=== PATIENT | female | born 1970 ===

== ENCOUNTER 2024-07-01 01:16 | Inpatient (IN) | payer OTHER, SELFPAY ==
[2024-07-01 01:52] VITALS: BMI 32.9
[2024-07-01] MEDS: OLANZapine ODT 10 MG TAB.RAPDIS TRANSLINGU ×3 (02:09→20:29)
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
[2024-07-01 07:50] VITALS: BP 121/61; PULSE 53; RESP 14; TEMP 36.4
--- NOTE | 2024-07-01 09:20 | HO.PSYADMNOT ---
HPI Date of Service: 07/01/24 Chief Complaint: major depressive disorder, unspecified anxiety Sources of Information: patient interviewed, chart reviewed and crisis/core team assessment reviewed HPI Subjective Notes: [place] Warning and Conditional Voluntary Narrative: Patient is a 54-year-old female with MDD with psychotic features, PTSD who presented to ER on a section 12 due to walking in the snow and freezing rain and being found by police secondary to medication noncompliance. Per crisis report, patient was out all night in the snow/freezing rain and was returned home via police presenting increasingly disorganized, not attending to her ADLs and attempting to discard of all of her possessions.. Patient presented to ER on a section 12 issued by [employer] after she refused evaluation and was too disorganized. She presented labile, muttering to herself and weeping. She presented with pressured speech, perseverating on Gypsies. She denies SI/HI/VH/AH. Denies any daily medications. Denies any substance use. During admission assessment, patient lying in bed refused to meet with T/W in unit office. Declined to turn over in bed to look at T/W during assessment. Guarded. Irritable. Patient kept assessment brief. When asked what brought her to the hospital, patient stated, I was brought here by ambulance. I don't fucking know why I'm here . Patient reports she is not anxious or depressed. When asked about thoughts of hurting others, patient stated, Just you . Patient then abruptly stopped interview and stated, I want you to leave the fucking room . T/W and sr. social media & mobile manager, Duyen, proceeded to leave room and told pt to ask RN if she needed anything. Later in morning, patient was seen sitting at table in unit milieu. T/W and RN approached patient and discussed conditional voluntary, which patient stated she understood and signed in. Discussed medications on her home medications hx (Zyprexa and Paxil); patient took medications willingly. Showered. Keeping to self. Past Psychiatric History: History of prior inpatient psychiatric admissions. Patient has outpatient supports through a [facility]. History of suicide attempt in 2009 but did not disclose any details. Medical Evaluation Reviewed: Yes [facility] Medical History (Updated 07/01/24 @ 16:09 by Leonarda Paris NP) Mood disorder Family History: History of substance use within the family. Social History: Lives in a home via [employer]. . Two adult daughters. Substance History: When asked patient states she has a history of using all of them . Trauma History: Yes Diagnostics Vital Signs (24Hr): Vital Signs - 24 hr 07/01/24 07:50 Temperature 97.5 F Pulse Rate 53 Respiratory Rate 14 Blood Pressure 121/61 Oxygen Delivery Method Room Air BMI result Body Mass Index 32.9 Meds/Allergies Meds Home Medications ?Medication ?Instructions ?Recorded ?Confirmed ?Type lorazepam 0.5 mg tablet 0.5 mg PO DAILY PRN Anxiety 07/01/24 07/01/24 History olanzapine 10 mg tablet 10 mg PO BEDTIME 07/01/24 07/01/24 History olanzapine 2.5 mg tablet 2.5 mg PO BEDTIME 07/01/24 07/01/24 History paroxetine HCl 20 mg tablet 20 mg PO DAILY 07/01/24 07/01/24 History zolpidem 5 mg tablet 5 mg PO BEDTIME PRN Insomnia 07/01/24 07/01/24 History Allergies Allergies Allergy/AdvReac Type Severity Reaction Status Date / Time latex Allergy Unknown Unknown Verified 07/01/24 01:48 mold Allergy Unknown Unknown Verified 07/01/24 01:48 Mental Status Exam Mental Status Exam Patient Appearance: Disheveled Patient Orientation: Person, Place and Situation Level of Consciousness: Awake Patient Behavior: Guarded, Verbal Threats, Swearing and Poor Eye Contact Mood Description: Labile Affect Description: Blunted Ability to Follow Directions: Good Speech Pattern: Clear and Includes Profanity Assessment & Plan Assessment & Plan (1) MDD (major depressive disorder), recurrent, severe, with psychosis: Status: Acute Code(s): F33.3 - Major depressive disorder, recurrent, severe with psychotic symptoms (2) PTSD (post-traumatic stress disorder): Status: Acute Code(s): F43.10 - Post-traumatic stress disorder, unspecified Plan Patient is a 54-year-old female with MDD with psychotic features, PTSD who presented to ER on a section 12 due to walking in the snow and freezing rain and being found by police secondary to medication noncompliance. Plan: CV 15 minute safety checks Continue home medications Encourage groups Obtain collateral Build rapport Discharge planning Patient educated on: diagnosis and medication risk/benefits Reason for continued inpatient stay Substantial Risk for: med/psych decompensation Statement Statement: I have reviewed the history and physical and performed a pertinent examination on my patient. No changes have occurred unless specified. If the History and Physical was not performed prior to admission, the Hospitalist's service will be consulted for completing the admission physical. Time Spent With Patient Time: Total time managing care of this patient today _60___ minutes.
[2024-07-01] MEDS: PARoxetine HCL 10 MG TABLET PO (10:59)
--- NOTE | 2024-07-01 13:43 | HO.HSGERICON ---
History of Present Illness Data of Consult Service Date: 07/01/24 Primary Care Provider: Unknown Physician HPI Reason for consult: psych admit 54F PMH mood disorder with psychotic features admitted to inpatient psychiatry. Patient feeling tired after medications but denying any active medical complaints. Denies any significant medical history. Home medications are all for psychiatric conditions. Review of Systems Review of Systems: Yes all other systems are reviewed and are negative [facility] Medical History (Updated 07/01/24 @ 13:44 by Zac Joseph MD) Mood disorder Social History Household Members: Other Household Members Other:: [facility] Housing: Unknown / Unable to assess Patient Tobacco Use Status: Tobacco use Unknown Use of substances other than those prescribed or required for medical reasons: Unknown Advance Directives: No Advance Directives Information Provided: Yes Do you have a plan to hurt others: Vague Recently lost weight without trying: Unsure How much weight loss: Unsure Eating poorly because of decreased appetite: No Nutrition screen score: 4 Nutrition Risks: No Nutritional Risk Poor oral hygiene: Yes service: No Sexual orientation: Straight/Heterosexual Meds Allergies Allergy/AdvReac Type Severity Reaction Status Date / Time latex Allergy Unknown Unknown Verified 07/01/24 01:48 mold Allergy Unknown Unknown Verified 07/01/24 01:48 Active Medications: Current Medications Acetaminophen (Acetaminophen 325 Mg Tablet) 650 mg PO Q6H PRN PRN Reason: Headache/Pain, Scale 1-10 Al Hydroxide/Mg Hydroxide (Magnesium Hydrox/Alum Hydrox 30 Ml Oral.Susp) 30 ml PO Q6H PRN PRN Reason: Heartburn/Nausea Hydroxyzine HCl (Hydroxyzine Hcl 25 Mg Tablet) 25 mg PO Q6H PRN PRN Reason: mild anxiety Magnesium Hydroxide (Milk Of Magnesia 30 Ml Oral.Susp) 30 ml PO DAILY PRN PRN Reason: Constipation Nicotine Polacrilex (Nicotine Polacrilex 2 Mg Gum) 4 mg BUCCAL Q2H PRN PRN Reason: Nicotine Cravings Olanzapine (Olanzapine Odt 10 Mg Tab.Rapdis) 10 mg TRANSLINGU BID [facility] Last Admin: 07/01/24 10:59 Dose: 10 mg Paroxetine HCl (Paroxetine Hcl 10 Mg Tablet) 10 mg PO DAILY [facility] Last Admin: 07/01/24 10:59 Dose: 10 mg Trazodone HCl (Trazodone Hcl 50 Mg Tablet) 50 mg PO BEDTIME MRX1 PRN PRN Reason: Insomnia Home Medications ?Medication ?Instructions ?Recorded ?Confirmed ?Last Taken ?Type lorazepam 0.5 mg tablet 0.5 mg PO DAILY PRN Anxiety 07/01/24 07/01/24 Unknown History olanzapine 10 mg tablet 10 mg PO BEDTIME 07/01/24 07/01/24 Unknown History paroxetine HCl 20 mg tablet 20 mg PO DAILY 07/01/24 07/01/24 Unknown History zolpidem 5 mg tablet 5 mg PO BEDTIME PRN Insomnia 07/01/24 07/01/24 Unknown History Assessment and Plan (1) Mood disorder: Status: Acute Plan 54F PMH mood disorder with psychotic features admitted to inpatient psychiatry Mood disorder with psychotic features Management per primary team Does not appear to have any active medical issues Physical Exam Vital Signs: Last Vital Signs Temp 97.5 F 07/01/24 07:50 Pulse 53 07/01/24 07:50 Resp 14 07/01/24 07:50 BP 121/61 07/01/24 07:50 O2 Del Method Room Air 07/01/24 07:50 BMI result Body Mass Index 32.9 General: AO X 3, no acute distress Resp: CTA bilateral, no accessory muscles used CVS: S1,S2,RRR GI: soft, non tender, non distended Neuro: motor grossly intact, alert Neuro Cranial nerves: Yes CN's II-XII intact bilaterally
[2024-07-01 17:31] LABS: Amphetamine Screen Urine Not Detected (Not Detect); Barbiturates, Urine Not Detected (Not Detect); Benzodiazepines Screen Urine Not Detected (Not Detect); Buprenorphine Scr Not Detected (Not Detect); Cannabinoid Screen Urine POSITIVE (Not Detect); Cocaine Screen Urine Not Detected (Not Detect); Fentanyl, urine Not Detected (Not Detect); Methadone Screen, Urine Not Detected (Not Detect); Opiate Screen Urine Not Detected (Not Detect); Oxycodone Screen Urine Not Detected (Not Detect); Phencyclidine Screen Urine Not Detected (Not Detect)
[2024-07-01 19:59] VITALS: BP 105/60; PULSE 49; RESP 14; TEMP 36.8; O2SAT 96
[2024-07-01] MEDS: traZODone HCL 50 MG TABLET PO (20:29)
--- NOTE | 2024-07-02 08:50 | P.PNPSI_ITS ---
Subjective Subjective Date of Service: 07/02/24 Reason For Visit: major depressive disorder, unspecified anxiety Subjective Notes: Conditional Voluntary Healthcare Proxy: No Guardianship: No Medical Problems Affecting Mental Status: No Interim History: Patient was seen and discussed in rounds today. Records and plans were reviewed. She is very well known to me from previous hospitalizations, the last was a number of months ago at [facility] where she was quite catatonic and it took awhile for her to come around with ECT which was administered at [facility] in [place]. She was quite stable for a number of months after that until recently she started to be medication noncompliant, stating ?I wanted to clear my head up?. I do believe that her Paxil which has been restarted was at a high er dose which I can not remember exactly but I will raise her current dose to 20 mg. Generally she had tolerated it well. No SI. Eating adequately and has been mostly in bed. Not attending groups. Medication Compliance: Yes Side effects from medications: No Attending Groups: No Review of Systems Review of Systems Yes all other systems are reviewed and are negative Mental Status Exam Mental Status Exam Narrative: In today's visit she is alert, oriented to place and person and the month and the year. She was able to recognize me. Speech is soft-spoken. Moderate eye contact. She is able to respond to questions appropriately but unable to give much details and chronology of events. Cognitively she is grossly intact but disorganized. No active SI/HI. Judgment is marginal. Diagnostics Vital Signs (24Hr): Vital Signs - 24 hr 07/01/24 19:59 Temperature 98.2 F Pulse Rate 49 L Respiratory Rate 14 Blood Pressure 105/60 Pulse Oximetry 96 Oxygen Delivery Method Room Air BMI result Body Mass Index 32.9 Labs Labs: Laboratory Results - last 48 hr 07/01/24 17:05 Urine Opiates Screen Not Detected Ur Buprenorphine Scrn Not Detected Ur Oxycodone Screen Not Detected Urine Methadone Screen Not Detected Urine Fentanyl Screen Not Detected Ur Barbiturates Screen Not Detected Ur Phencyclidine Scrn Not Detected Ur Amphetamines Screen Not Detected U Benzodiazepines Scrn Not Detected Urine Cocaine Screen Not Detected U Marijuana (THC) Screen POSITIVE H Medications Medications Current Medications Acetaminophen (Acetaminophen 325 Mg Tablet) 650 mg PO Q6H PRN PRN Reason: Headache/Pain, Scale 1-10 Al Hydroxide/Mg Hydroxide (Magnesium Hydrox/Alum Hydrox 30 Ml Oral.Susp) 30 ml PO Q6H PRN PRN Reason: Heartburn/Nausea Benztropine Mesylate (Benztropine Mesylate 1 Mg Tablet) 1 mg PO DAILY PRN PRN Reason: Extrapyramidal Effects Hydroxyzine HCl (Hydroxyzine Hcl 25 Mg Tablet) 25 mg PO Q6H PRN PRN Reason: mild anxiety Magnesium Hydroxide (Milk Of Magnesia 30 Ml Oral.Susp) 30 ml PO DAILY PRN PRN Reason: Constipation Nicotine Polacrilex (Nicotine Polacrilex 2 Mg Gum) 4 mg BUCCAL Q2H PRN PRN Reason: Nicotine Cravings Olanzapine (Olanzapine Odt 10 Mg Tab.Rapdis) 10 mg TRANSLINGU BID [facility] Last Admin: 07/01/24 20:29 Dose: 10 mg Trazodone HCl (Trazodone Hcl 50 Mg Tablet) 50 mg PO BEDTIME MRX1 PRN PRN Reason: Insomnia Last Admin: 07/01/24 20:29 Dose: 50 mg Allergies Allergies Allergy/AdvReac Type Severity Reaction Status Date / Time latex Allergy Unknown Unknown Verified 07/01/24 01:48 mold Allergy Unknown Unknown Verified 07/01/24 01:48 Assessment & Plan Assessment & Plan (1) MDD (major depressive disorder), recurrent, severe, with psychosis: Status: Acute Code(s): F33.3 - Major depressive disorder, recurrent, severe with psychotic symptoms (2) PTSD (post-traumatic stress disorder): Status: Acute Code(s): F43.10 - Post-traumatic stress disorder, unspecified Plan Patient is a 54-year-old female with MDD with psychotic features, PTSD who presented to ER on a section 12 due to walking in the snow and freezing rain and being found by police secondary to medication noncompliance. Plan: CV 15 minute safety checks Continue home medications Encourage groups Obtain collateral Build rapport Discharge planning Reason for continued inpatient stay Substantial Risk for: harm to self and med/psych decompensation Time Spent With Patient Time: Total time managing care of this patient today ____ minutes.
[2024-07-02] MEDS: OLANZapine ODT 10 MG TAB.RAPDIS TRANSLINGU ×2 (09:14→20:10)
[2024-07-02] MEDS: PARoxetine HCL 20 MG TABLET PO (09:14)
[2024-07-02 11:43] LABS: Cholesterol 179 mg/dL (<200); HDL Cholesterol 42 mg/dL (>40); LDL Cholesterol Calculated 109 mg/dL (<100); Triglycerides 142 mg/dL (<150)
[2024-07-02 19:24] VITALS: BP 131/78; PULSE 56; RESP 16; TEMP 36.3; O2SAT 100
[2024-07-03 08:00] VITALS: BP 136/63; PULSE 62; RESP 16; TEMP 36.4; O2SAT 98
[2024-07-03] MEDS: PARoxetine HCL 20 MG TABLET PO (09:11)
[2024-07-03] MEDS: OLANZapine ODT 10 MG TAB.RAPDIS TRANSLINGU ×2 (09:11→21:53)
--- NOTE | 2024-07-03 10:10 | HO.PSYCHPN ---
Subjective Subjective Date of Service: 07/03/24 Reason For Visit: major depressive disorder, unspecified anxiety Subjective Notes: Conditional Voluntary Healthcare Proxy: No Guardianship: No Medical Problems Affecting Mental Status: No Interim History: Patient was seen and discussed in rounds today. Records and plans were reviewed. She is doing a little better but continues to be depressed. She does come out but spends a lot of time her room also. She refused her medications this morning and I had a long discussion with her given my history with her and how bad she gets when she stops her medications. She took them afterwards. No SI. No changes were made today Medication Compliance: Yes Side effects from medications: No Attending Groups: No Review of Systems Review of Systems Yes all other systems are reviewed and are negative Mental Status Exam Mental Status Exam Narrative: In today's visit she is alert, oriented to place and person and the month and the year. She was able to recognize me. Speech is soft-spoken. Moderate eye contact. She is able to respond to questions appropriately but unable to give much details and chronology of events. Cognitively she is grossly intact but disorganized. No active SI/HI. Judgment is marginal. Diagnostics Vital Signs (24Hr): Vital Signs - 24 hr 07/02/24 19:24 07/03/24 08:00 Temperature 97.3 F 97.5 F Pulse Rate 56 62 Respiratory Rate 16 16 Blood Pressure 131/78 136/63 Pulse Oximetry 100 98 Oxygen Delivery Method Room Air Room Air BMI result Body Mass Index 32.9 Labs Labs: Laboratory Results - last 48 hr 07/01/24 07/02/24 17:05 10:53 Triglycerides 142 Cholesterol 179 LDL Cholesterol, Calc 109 H HDL Cholesterol 42 Urine Opiates Screen Not Detected Ur Buprenorphine Scrn Not Detected Ur Oxycodone Screen Not Detected Urine Methadone Screen Not Detected Urine Fentanyl Screen Not Detected Ur Barbiturates Screen Not Detected Ur Phencyclidine Scrn Not Detected Ur Amphetamines Screen Not Detected U Benzodiazepines Scrn Not Detected Urine Cocaine Screen Not Detected U Marijuana (THC) Screen POSITIVE H Medications Medications Current Medications Acetaminophen (Acetaminophen 325 Mg Tablet) 650 mg PO Q6H PRN PRN Reason: Headache/Pain, Scale 1-10 Al Hydroxide/Mg Hydroxide (Magnesium Hydrox/Alum Hydrox 30 Ml Oral.Susp) 30 ml PO Q6H PRN PRN Reason: Heartburn/Nausea Benztropine Mesylate (Benztropine Mesylate 1 Mg Tablet) 1 mg PO DAILY PRN PRN Reason: Extrapyramidal Effects Hydroxyzine HCl (Hydroxyzine Hcl 25 Mg Tablet) 25 mg PO Q6H PRN PRN Reason: mild anxiety Magnesium Hydroxide (Milk Of Magnesia 30 Ml Oral.Susp) 30 ml PO DAILY PRN PRN Reason: Constipation Nicotine Polacrilex (Nicotine Polacrilex 2 Mg Gum) 4 mg BUCCAL Q2H PRN PRN Reason: Nicotine Cravings Olanzapine (Olanzapine Odt 10 Mg Tab.Rapdis) 10 mg TRANSLINGU BID [facility] Last Admin: 07/03/24 09:11 Dose: 10 mg Paroxetine HCl (Paroxetine Hcl 20 Mg Tablet) 20 mg PO DAILY [facility] Last Admin: 07/03/24 09:11 Dose: 20 mg Trazodone HCl (Trazodone Hcl 50 Mg Tablet) 50 mg PO BEDTIME MRX1 PRN PRN Reason: Insomnia Last Admin: 07/01/24 20:29 Dose: 50 mg Allergies Allergies Allergy/AdvReac Type Severity Reaction Status Date / Time latex Allergy Unknown Unknown Verified 07/01/24 01:48 mold Allergy Unknown Unknown Verified 07/01/24 01:48 Assessment & Plan Assessment & Plan (1) MDD (major depressive disorder), recurrent, severe, with psychosis: Status: Acute Code(s): F33.3 - Major depressive disorder, recurrent, severe with psychotic symptoms (2) PTSD (post-traumatic stress disorder): Status: Acute Code(s): F43.10 - Post-traumatic stress disorder, unspecified Plan Patient is a 54-year-old female with MDD with psychotic features, PTSD who presented to ER on a section 12 due to walking in the snow and freezing rain and being found by police secondary to medication noncompliance. Plan: CV 15 minute safety checks Continue home medications Encourage groups Obtain collateral Build rapport Discharge planning 07/03: Continue current regimen and plans. Patient educated on: medication risk/benefits Reason for continued inpatient stay Substantial Risk for: rapid decompensation and med/psych decompensation Time Spent With Patient Time: Total time managing care of this patient today ____ minutes.
[2024-07-03 19:44] VITALS: BP 127/70; PULSE 71; RESP 16; TEMP 36.4; O2SAT 99
[2024-07-04 08:00] VITALS: BP 134/73; PULSE 58; RESP 16; TEMP 36.8; O2SAT 99
[2024-07-04] MEDS: OLANZapine ODT 10 MG TAB.RAPDIS TRANSLINGU ×2 (09:20→20:15)
[2024-07-04] MEDS: PARoxetine HCL 20 MG TABLET PO (09:20)
--- NOTE | 2024-07-04 09:36 | HO.PSYCHPN ---
Subjective Subjective Date of Service: 07/04/24 Reason For Visit: major depressive disorder, unspecified anxiety Subjective Notes: Conditional Voluntary Healthcare Proxy: No Guardianship: No Medical Problems Affecting Mental Status: No Interim History: Patient was seen and discussed in rounds today. Records and plans were reviewed. She continues to attempt to refuse medications but when they mention that hi have okayed the medications and wants her to take them she will. I do have a long history with her and she trusts me. That can be used during the week also! Eating and sleeping adequately. No acute signs of psychosis. No active SI. No changes were made today Medication Compliance: Yes Side effects from medications: No Attending Groups: No Review of Systems Review of Systems Yes all other systems are reviewed and are negative Mental Status Exam Mental Status Exam Narrative: In today's visit she is alert, oriented to place and person and the month and the year. She was able to recognize me. Speech is soft-spoken. Moderate eye contact. She is able to respond to questions appropriately but unable to give much details and chronology of events. Cognitively she is grossly intact but disorganized. No active SI/HI. Judgment is marginal. Diagnostics Vital Signs (24Hr): Vital Signs - 24 hr 07/03/24 19:44 07/04/24 08:00 Temperature 97.6 F 98.2 F Pulse Rate 71 58 Respiratory Rate 16 16 Blood Pressure 127/70 134/73 Pulse Oximetry 99 99 Oxygen Delivery Method Room Air Room Air BMI result Body Mass Index 32.9 Labs Labs: Laboratory Results - last 48 hr 07/02/24 10:53 Triglycerides 142 Cholesterol 179 LDL Cholesterol, Calc 109 H HDL Cholesterol 42 Medications Medications Current Medications Acetaminophen (Acetaminophen 325 Mg Tablet) 650 mg PO Q6H PRN PRN Reason: Headache/Pain, Scale 1-10 Al Hydroxide/Mg Hydroxide (Magnesium Hydrox/Alum Hydrox 30 Ml Oral.Susp) 30 ml PO Q6H PRN PRN Reason: Heartburn/Nausea Benztropine Mesylate (Benztropine Mesylate 1 Mg Tablet) 1 mg PO DAILY PRN PRN Reason: Extrapyramidal Effects Hydroxyzine HCl (Hydroxyzine Hcl 25 Mg Tablet) 25 mg PO Q6H PRN PRN Reason: mild anxiety Magnesium Hydroxide (Milk Of Magnesia 30 Ml Oral.Susp) 30 ml PO DAILY PRN PRN Reason: Constipation Nicotine Polacrilex (Nicotine Polacrilex 2 Mg Gum) 4 mg BUCCAL Q2H PRN PRN Reason: Nicotine Cravings Olanzapine (Olanzapine Odt 10 Mg Tab.Rapdis) 10 mg TRANSLINGU BID [facility] Last Admin: 07/04/24 09:20 Dose: 10 mg Paroxetine HCl (Paroxetine Hcl 20 Mg Tablet) 20 mg PO DAILY [facility] Last Admin: 07/04/24 09:20 Dose: 20 mg Trazodone HCl (Trazodone Hcl 50 Mg Tablet) 50 mg PO BEDTIME MRX1 PRN PRN Reason: Insomnia Last Admin: 07/01/24 20:29 Dose: 50 mg Allergies Allergies Allergy/AdvReac Type Severity Reaction Status Date / Time latex Allergy Unknown Unknown Verified 07/01/24 01:48 mold Allergy Unknown Unknown Verified 07/01/24 01:48 Assessment & Plan Assessment & Plan (1) MDD (major depressive disorder), recurrent, severe, with psychosis: Status: Acute Code(s): F33.3 - Major depressive disorder, recurrent, severe with psychotic symptoms (2) PTSD (post-traumatic stress disorder): Status: Acute Code(s): F43.10 - Post-traumatic stress disorder, unspecified Plan Patient is a 54-year-old female with MDD with psychotic features, PTSD who presented to ER on a section 12 due to walking in the snow and freezing rain and being found by police secondary to medication noncompliance. Plan: CV 15 minute safety checks Continue home medications Encourage groups Obtain collateral Build rapport Discharge planning 07/03: Continue current regimen and plans. 07/04: Continue current regimen and plans Reason for continued inpatient stay Substantial Risk for: med/psych decompensation Time Spent With Patient Time: Total time managing care of this patient today ____ minutes.
[2024-07-04 20:00] VITALS: BP 134/86; PULSE 51; RESP 16; TEMP 36.8; O2SAT 98
[2024-07-05 08:00] VITALS: BP 141/73; PULSE 61; RESP 16; TEMP 36.3; O2SAT 99
[2024-07-05] MEDS: PARoxetine HCL 20 MG TABLET PO (08:18)
[2024-07-05] MEDS: OLANZapine ODT 10 MG TAB.RAPDIS TRANSLINGU ×2 (08:18→20:11)
--- NOTE | 2024-07-05 11:10 | HO.PSYCHPN ---
Subjective Subjective Date of Service: 07/05/24 Reason For Visit: major depressive disorder, unspecified anxiety Subjective Notes: Conditional Voluntary Interim History: Patient reports feeling calmer and more engaged today; pt stated, I'm willing to keep taking my meds. The voices went away over the weekend . Pt appears thought blocking/preoccupied at times during conversation. She expresses concern with trusting people . denies SI/HI/VH/AH. Continue current tx plan. Medication Compliance: Yes Side effects from medications: No Attending Groups: Yes Mental Status Exam Mental Status Exam Narrative: Pt is alert and oriented; behavior is cooperative, calm; dressed in casual attire; mood is described as calmer ; eye contact appropriate; Speech is normal rate, volume and not pressured; some thought blocking/preoccupation; Thought content is on tx; denies SI/HI/VH/AH. Diagnostics Vital Signs (24Hr): Vital Signs - 24 hr 07/04/24 20:00 07/05/24 08:00 Temperature 98.2 F 97.3 F Pulse Rate 51 61 Respiratory Rate 16 16 Blood Pressure 134/86 141/73 H Pulse Oximetry 98 99 Oxygen Delivery Method Room Air Room Air BMI result Body Mass Index 32.9 Medications Medications Current Medications Acetaminophen (Acetaminophen 325 Mg Tablet) 650 mg PO Q6H PRN PRN Reason: Headache/Pain, Scale 1-10 Al Hydroxide/Mg Hydroxide (Magnesium Hydrox/Alum Hydrox 30 Ml Oral.Susp) 30 ml PO Q6H PRN PRN Reason: Heartburn/Nausea Benztropine Mesylate (Benztropine Mesylate 1 Mg Tablet) 1 mg PO DAILY PRN PRN Reason: Extrapyramidal Effects Hydroxyzine HCl (Hydroxyzine Hcl 25 Mg Tablet) 25 mg PO Q6H PRN PRN Reason: mild anxiety Magnesium Hydroxide (Milk Of Magnesia 30 Ml Oral.Susp) 30 ml PO DAILY PRN PRN Reason: Constipation Nicotine Polacrilex (Nicotine Polacrilex 2 Mg Gum) 4 mg BUCCAL Q2H PRN PRN Reason: Nicotine Cravings Olanzapine (Olanzapine Odt 10 Mg Tab.Rapdis) 10 mg TRANSLINGU BID [facility] Last Admin: 07/05/24 08:18 Dose: 10 mg Paroxetine HCl (Paroxetine Hcl 20 Mg Tablet) 20 mg PO DAILY [facility] Last Admin: 07/05/24 08:18 Dose: 20 mg Trazodone HCl (Trazodone Hcl 50 Mg Tablet) 50 mg PO BEDTIME MRX1 PRN PRN Reason: Insomnia Last Admin: 07/01/24 20:29 Dose: 50 mg Allergies Allergies Allergy/AdvReac Type Severity Reaction Status Date / Time latex Allergy Unknown Unknown Verified 07/01/24 01:48 mold Allergy Unknown Unknown Verified 07/01/24 01:48 Assessment & Plan Assessment & Plan (1) MDD (major depressive disorder), recurrent, severe, with psychosis: Status: Acute Code(s): F33.3 - Major depressive disorder, recurrent, severe with psychotic symptoms (2) PTSD (post-traumatic stress disorder): Status: Acute Code(s): F43.10 - Post-traumatic stress disorder, unspecified Plan Patient is a 54-year-old female with MDD with psychotic features, PTSD who presented to ER on a section 12 due to walking in the snow and freezing rain and being found by police secondary to medication noncompliance. Plan: CV 15 minute safety checks Continue home medications Encourage groups Obtain collateral Build rapport Discharge planning 07/03: Continue current regimen and plans. 07/04: Continue current regimen and plans 07/05: Patient reports feeling calmer and more engaged today; pt stated, I'm willing to keep taking my meds. The voices went away over the weekend . Pt appears thought blocking/preoccupied at times during conversation. She expresses concern with trusting people . denies SI/HI/VH/AH. Continue current tx plan. Patient educated on: diagnosis, medication risk/benefits and therapeutic strategies Reason for continued inpatient stay Substantial Risk for: med/psych decompensation Time Spent With Patient Time: Total time managing care of this patient today _20___ minutes.
[2024-07-05 20:00] VITALS: BP 119/74; PULSE 63; RESP 16; TEMP 36.6; O2SAT 99
[2024-07-06 07:48] VITALS: BP 149/72; PULSE 65; RESP 16; TEMP 36.5; O2SAT 99
[2024-07-06] MEDS: PARoxetine HCL 20 MG TABLET PO (09:03)
[2024-07-06] MEDS: OLANZapine ODT 10 MG TAB.RAPDIS TRANSLINGU ×2 (09:03→20:40)
--- NOTE | 2024-07-06 09:14 | P.PNPSI_ITS ---
Subjective Subjective Date of Service: 07/06/24 Reason For Visit: major depressive disorder, unspecified anxiety Subjective Notes: Conditional Voluntary Interim History: Active on unit. attending groups. Patient reports feeling she is getting back to normal ; she reports sleeping well. Not appearing preoccupied today during conversation. denies SI/HI/VH/AH. Educated regarding importance of medication compliance; pt expressed understanding. Continue current tx plan. Medication Compliance: Yes Side effects from medications: No Attending Groups: Yes Mental Status Exam Mental Status Exam Narrative: Pt is alert and oriented; behavior is cooperative, calm; dressed in casual attire; mood is described as getting back to normal ; eye contact appropriate; Speech is normal rate, volume and not pressured; Thought content is on tx and discharge; denies SI/HI/VH/AH. Diagnostics Vital Signs (24Hr): Vital Signs - 24 hr 07/05/24 20:00 07/06/24 07:48 Temperature 97.9 F 97.7 F Pulse Rate 63 65 Respiratory Rate 16 16 Blood Pressure 119/74 149/72 H Pulse Oximetry 99 99 Oxygen Delivery Method Room Air Room Air BMI result Body Mass Index 32.9 Medications Medications Current Medications Acetaminophen (Acetaminophen 325 Mg Tablet) 650 mg PO Q6H PRN PRN Reason: Headache/Pain, Scale 1-10 Al Hydroxide/Mg Hydroxide (Magnesium Hydrox/Alum Hydrox 30 Ml Oral.Susp) 30 ml PO Q6H PRN PRN Reason: Heartburn/Nausea Benztropine Mesylate (Benztropine Mesylate 1 Mg Tablet) 1 mg PO DAILY PRN PRN Reason: Extrapyramidal Effects Hydroxyzine HCl (Hydroxyzine Hcl 25 Mg Tablet) 25 mg PO Q6H PRN PRN Reason: mild anxiety Magnesium Hydroxide (Milk Of Magnesia 30 Ml Oral.Susp) 30 ml PO DAILY PRN PRN Reason: Constipation Nicotine Polacrilex (Nicotine Polacrilex 2 Mg Gum) 4 mg BUCCAL Q2H PRN PRN Reason: Nicotine Cravings Olanzapine (Olanzapine Odt 10 Mg Tab.Rapdis) 10 mg TRANSLINGU BID [facility] Last Admin: 07/06/24 09:03 Dose: 10 mg Paroxetine HCl (Paroxetine Hcl 20 Mg Tablet) 20 mg PO DAILY [facility] Last Admin: 07/06/24 09:03 Dose: 20 mg Trazodone HCl (Trazodone Hcl 50 Mg Tablet) 50 mg PO BEDTIME MRX1 PRN PRN Reason: Insomnia Last Admin: 07/01/24 20:29 Dose: 50 mg Allergies Allergies Allergy/AdvReac Type Severity Reaction Status Date / Time latex Allergy Unknown Unknown Verified 07/01/24 01:48 mold Allergy Unknown Unknown Verified 07/01/24 01:48 Assessment & Plan Assessment & Plan (1) MDD (major depressive disorder), recurrent, severe, with psychosis: Status: Acute Code(s): F33.3 - Major depressive disorder, recurrent, severe with psychotic symptoms (2) PTSD (post-traumatic stress disorder): Status: Acute Code(s): F43.10 - Post-traumatic stress disorder, unspecified Plan Patient is a 54-year-old female with MDD with psychotic features, PTSD who presented to ER on a section 12 due to walking in the snow and freezing rain and being found by police secondary to medication noncompliance. Plan: CV 15 minute safety checks Continue home medications Encourage groups Obtain collateral Build rapport Discharge planning 07/03: Continue current regimen and plans. 07/04: Continue current regimen and plans 07/05: Patient reports feeling calmer and more engaged today; pt stated, I'm willing to keep taking my meds. The voices went away over the weekend . Pt appears thought blocking/preoccupied at times during conversation. She expresses concern with trusting people . denies SI/HI/VH/AH. Continue current tx plan. 07/06: Active on unit. attending groups. Patient reports feeling she is getting back to normal ; she reports sleeping well. Not appearing preoccupied today during conversation. denies SI/HI/VH/AH. Educated regarding importance of medication compliance; pt expressed understanding. Continue current tx plan. Patient educated on: diagnosis, medication risk/benefits and therapeutic strategies Reason for continued inpatient stay Substantial Risk for: med/psych decompensation Time Spent With Patient Time: Total time managing care of this patient today _20___ minutes.
[2024-07-06 20:00] VITALS: BP 139/65; PULSE 70; RESP 16; TEMP 36.4; O2SAT 99
[2024-07-06] MEDS: Magnesium Hydrox/Alum Hydrox 30 ML ORAL.SUSP PO (20:39)
[2024-07-07 07:00] VITALS: BMI 30.6
[2024-07-07 07:20] VITALS: BP 140/60; PULSE 63; RESP 16; TEMP 36.6; O2SAT 99
[2024-07-07] MEDS: OLANZapine ODT 10 MG TAB.RAPDIS TRANSLINGU ×2 (08:34→20:31)
[2024-07-07] MEDS: PARoxetine HCL 20 MG TABLET PO (08:34)
--- NOTE | 2024-07-07 10:16 | HO.PSYCHPN ---
Subjective Subjective Date of Service: 07/07/24 Reason For Visit: major depressive disorder, unspecified anxiety Subjective Notes: Conditional Voluntary Interim History: Active on unit. attending groups. Patient reports feeling good today; pt stated, I think i'm on the right meds. It's helpful . denies SI/HI/VH/AH. Plan to discharge home early next week, if continues to improve. continue current tx plan. Medication Compliance: Yes Side effects from medications: No Attending Groups: Yes Mental Status Exam Mental Status Exam Narrative: Pt is alert and oriented; behavior is cooperative, calm; dressed in casual attire; mood is described as good ; eye contact appropriate; Speech is normal rate, volume and not pressured; Thought content is on tx and discharge; denies SI/HI/VH/AH. Diagnostics Vital Signs (24Hr): Vital Signs - 24 hr 07/06/24 20:00 07/07/24 07:20 Temperature 97.6 F 97.8 F Pulse Rate 70 63 Respiratory Rate 16 16 Blood Pressure 139/65 140/60 H Pulse Oximetry 99 99 Oxygen Delivery Method Room Air Room Air BMI result Body Mass Index 32.9 Medications Medications Current Medications Acetaminophen (Acetaminophen 325 Mg Tablet) 650 mg PO Q6H PRN PRN Reason: Headache/Pain, Scale 1-10 Al Hydroxide/Mg Hydroxide (Magnesium Hydrox/Alum Hydrox 30 Ml Oral.Susp) 30 ml PO Q6H PRN PRN Reason: Heartburn/Nausea Last Admin: 07/06/24 20:39 Dose: 30 ml Benztropine Mesylate (Benztropine Mesylate 1 Mg Tablet) 1 mg PO DAILY PRN PRN Reason: Extrapyramidal Effects Hydroxyzine HCl (Hydroxyzine Hcl 25 Mg Tablet) 25 mg PO Q6H PRN PRN Reason: mild anxiety Magnesium Hydroxide (Milk Of Magnesia 30 Ml Oral.Susp) 30 ml PO DAILY PRN PRN Reason: Constipation Nicotine Polacrilex (Nicotine Polacrilex 2 Mg Gum) 4 mg BUCCAL Q2H PRN PRN Reason: Nicotine Cravings Olanzapine (Olanzapine Odt 10 Mg Tab.Rapdis) 10 mg TRANSLINGU BID [facility] Last Admin: 07/07/24 08:34 Dose: 10 mg Paroxetine HCl (Paroxetine Hcl 20 Mg Tablet) 20 mg PO DAILY [facility] Last Admin: 07/07/24 08:34 Dose: 20 mg Trazodone HCl (Trazodone Hcl 50 Mg Tablet) 50 mg PO BEDTIME MRX1 PRN PRN Reason: Insomnia Last Admin: 07/01/24 20:29 Dose: 50 mg Allergies Allergies Allergy/AdvReac Type Severity Reaction Status Date / Time latex Allergy Unknown Unknown Verified 07/01/24 01:48 mold Allergy Unknown Unknown Verified 07/01/24 01:48 Assessment & Plan Assessment & Plan (1) MDD (major depressive disorder), recurrent, severe, with psychosis: Status: Acute Code(s): F33.3 - Major depressive disorder, recurrent, severe with psychotic symptoms (2) PTSD (post-traumatic stress disorder): Status: Acute Code(s): F43.10 - Post-traumatic stress disorder, unspecified Plan Patient is a 54-year-old female with MDD with psychotic features, PTSD who presented to ER on a section 12 due to walking in the snow and freezing rain and being found by police secondary to medication noncompliance. Plan: CV 15 minute safety checks Continue home medications Encourage groups Obtain collateral Build rapport Discharge planning 07/03: Continue current regimen and plans. 07/04: Continue current regimen and plans 07/05: Patient reports feeling calmer and more engaged today; pt stated, I'm willing to keep taking my meds. The voices went away over the weekend . Pt appears thought blocking/preoccupied at times during conversation. She expresses concern with trusting people . denies SI/HI/VH/AH. Continue current tx plan. 07/06: Active on unit. attending groups. Patient reports feeling she is getting back to normal ; she reports sleeping well. Not appearing preoccupied today during conversation. denies SI/HI/VH/AH. Educated regarding importance of medication compliance; pt expressed understanding. Continue current tx plan. 07/07: Active on unit. attending groups. Patient reports feeling good today; pt stated, I think i'm on the right meds. It's helpful . denies SI/HI/VH/AH. Plan to discharge home early next week, if continues to improve. continue current tx plan. Patient educated on: diagnosis and medication risk/benefits Reason for continued inpatient stay Substantial Risk for: med/psych decompensation Time Spent With Patient Time: Total time managing care of this patient today _20___ minutes.
[2024-07-07] MEDS: Magnesium Hydrox/Alum Hydrox 30 ML ORAL.SUSP PO (15:27)
[2024-07-07 20:00] VITALS: BP 143/91; PULSE 90; RESP 16; TEMP 36.9; O2SAT 95
[2024-07-08 07:45] VITALS: BP 138/76; PULSE 67; RESP 14; TEMP 36.9; O2SAT 100
[2024-07-08] MEDS: PARoxetine HCL 20 MG TABLET PO (08:59)
[2024-07-08] MEDS: OLANZapine ODT 10 MG TAB.RAPDIS TRANSLINGU ×2 (08:59→21:29)
--- NOTE | 2024-07-08 11:55 | P.PNPSI_ITS ---
Subjective Subjective Date of Service: 07/08/24 Reason For Visit: major depressive disorder, unspecified anxiety Subjective Notes: Conditional Voluntary Interim History: Active on unit. attending groups. Patient continues to report feeling good ; plan to be discharged next week and her outpatient team to pick her up from hospital. denies SI/HI/VH/AH. She reports sleeping well. denies any issues at this time. Medication Compliance: Yes Side effects from medications: No Attending Groups: Yes Mental Status Exam Mental Status Exam Narrative: Pt is alert and oriented; behavior is cooperative, calm; dressed in casual attire; mood is described as good ; eye contact appropriate; Speech is normal rate, volume and not pressured; Thought content is on tx and discharge; denies SI/HI/VH/AH. Diagnostics Vital Signs (24Hr): Vital Signs - 24 hr 07/07/24 20:00 07/08/24 07:45 Temperature 98.4 F 98.4 F Pulse Rate 90 67 Respiratory Rate 16 14 Blood Pressure 143/91 H 138/76 Pulse Oximetry 95 100 Oxygen Delivery Method Room Air Room Air BMI result Body Mass Index 30.6 Medications Medications Current Medications Acetaminophen (Acetaminophen 325 Mg Tablet) 650 mg PO Q6H PRN PRN Reason: Headache/Pain, Scale 1-10 Al Hydroxide/Mg Hydroxide (Magnesium Hydrox/Alum Hydrox 30 Ml Oral.Susp) 30 ml PO Q6H PRN PRN Reason: Heartburn/Nausea Last Admin: 07/07/24 15:27 Dose: 30 ml Benztropine Mesylate (Benztropine Mesylate 1 Mg Tablet) 1 mg PO DAILY PRN PRN Reason: Extrapyramidal Effects Hydroxyzine HCl (Hydroxyzine Hcl 25 Mg Tablet) 25 mg PO Q6H PRN PRN Reason: mild anxiety Magnesium Hydroxide (Milk Of Magnesia 30 Ml Oral.Susp) 30 ml PO DAILY PRN PRN Reason: Constipation Nicotine Polacrilex (Nicotine Polacrilex 2 Mg Gum) 4 mg BUCCAL Q2H PRN PRN Reason: Nicotine Cravings Olanzapine (Olanzapine Odt 10 Mg Tab.Rapdis) 10 mg TRANSLINGU BID [facility] Last Admin: 07/08/24 08:59 Dose: 10 mg Paroxetine HCl (Paroxetine Hcl 20 Mg Tablet) 20 mg PO DAILY [facility] Last Admin: 07/08/24 08:59 Dose: 20 mg Trazodone HCl (Trazodone Hcl 50 Mg Tablet) 50 mg PO BEDTIME MRX1 PRN PRN Reason: Insomnia Last Admin: 07/01/24 20:29 Dose: 50 mg Allergies Allergies Allergy/AdvReac Type Severity Reaction Status Date / Time latex Allergy Unknown Unknown Verified 07/01/24 01:48 mold Allergy Unknown Unknown Verified 07/01/24 01:48 Assessment & Plan Assessment & Plan (1) MDD (major depressive disorder), recurrent, severe, with psychosis: Status: Acute Code(s): F33.3 - Major depressive disorder, recurrent, severe with psychotic symptoms (2) PTSD (post-traumatic stress disorder): Status: Acute Code(s): F43.10 - Post-traumatic stress disorder, unspecified Plan Patient is a 54-year-old female with MDD with psychotic features, PTSD who presented to ER on a section 12 due to walking in the snow and freezing rain and being found by police secondary to medication noncompliance. Plan: CV 15 minute safety checks Continue home medications Encourage groups Obtain collateral Build rapport Discharge planning 07/03: Continue current regimen and plans. 07/04: Continue current regimen and plans 07/05: Patient reports feeling calmer and more engaged today; pt stated, I'm willing to keep taking my meds. The voices went away over the weekend . Pt appears thought blocking/preoccupied at times during conversation. She expresses concern with trusting people . denies SI/HI/VH/AH. Continue current tx plan. 07/06: Active on unit. attending groups. Patient reports feeling she is getting back to normal ; she reports sleeping well. Not appearing preoccupied today during conversation. denies SI/HI/VH/AH. Educated regarding importance of medication compliance; pt expressed understanding. Continue current tx plan. 07/07: Active on unit. attending groups. Patient reports feeling good today; pt stated, I think i'm on the right meds. It's helpful . denies SI/HI/VH/AH. Plan to discharge home early next week, if continues to improve. continue current tx plan. 07/08: Patient continues to report feeling good ; plan to be discharged next week and her outpatient team to pick her up from hospital. denies SI/HI/VH/AH. She reports sleeping well. denies any issues at this time. attending groups. Patient educated on: diagnosis, medication risk/benefits and therapeutic strategies Reason for continued inpatient stay Substantial Risk for: med/psych decompensation Time Spent With Patient Time: Total time managing care of this patient today __20__ minutes.
[2024-07-08 20:00] VITALS: BP 137/81; PULSE 68; RESP 16; TEMP 36.9; O2SAT 98
[2024-07-09 07:10] VITALS: BP 121/72; PULSE 65; RESP 16; TEMP 36.4; O2SAT 99
[2024-07-09] MEDS: PARoxetine HCL 20 MG TABLET PO (08:48)
[2024-07-09] MEDS: OLANZapine ODT 10 MG TAB.RAPDIS TRANSLINGU ×2 (08:48→20:28)
--- NOTE | 2024-07-09 10:39 | P.PNPSI_ITS ---
Subjective Subjective Date of Service: 07/09/24 Reason For Visit: major depressive disorder, unspecified anxiety Interim History: Active on unit. attending groups. Patient continues to report feeling good ; plan to be discharged next week and her outpatient team to pick her up from hospital. denies SI/HI/VH/AH. She reports sleeping well. denies any issues at this time. Review of Systems Review of Systems Yes all other systems are reviewed and are negative Mental Status Exam Mental Status Exam Narrative: Pt is alert and oriented; behavior is cooperative, calm; dressed in casual attire; mood is described as good ; eye contact appropriate; Speech is normal rate, volume and not pressured; Thought content is on tx and discharge; denies SI/HI/VH/AH. Patient Appearance: Disheveled Patient Orientation: Person, Place and Situation Level of Consciousness: Awake Patient Behavior: Guarded, Verbal Threats, Swearing and Poor Eye Contact Mood Description: Labile Affect Description: Blunted Ability to Follow Directions: Good Speech Pattern: Clear and Includes Profanity Diagnostics Vital Signs (24Hr): Vital Signs - 24 hr 07/08/24 20:00 07/09/24 07:10 Temperature 98.4 F 97.6 F Pulse Rate 68 65 Respiratory Rate 16 16 Blood Pressure 137/81 121/72 Pulse Oximetry 98 99 Oxygen Delivery Method Room Air Room Air BMI result Body Mass Index 30.6 Medications Medications Current Medications Acetaminophen (Acetaminophen 325 Mg Tablet) 650 mg PO Q6H PRN PRN Reason: Headache/Pain, Scale 1-10 Al Hydroxide/Mg Hydroxide (Magnesium Hydrox/Alum Hydrox 30 Ml Oral.Susp) 30 ml PO Q6H PRN PRN Reason: Heartburn/Nausea Last Admin: 07/07/24 15:27 Dose: 30 ml Benztropine Mesylate (Benztropine Mesylate 1 Mg Tablet) 1 mg PO DAILY PRN PRN Reason: Extrapyramidal Effects Calcium Carbonate (Calcium Carbonate 750 Mg Tab.Chew) 750 mg PO Q6H PRN PRN Reason: Heartburn Hydroxyzine HCl (Hydroxyzine Hcl 25 Mg Tablet) 25 mg PO Q6H PRN PRN Reason: mild anxiety Magnesium Hydroxide (Milk Of Magnesia 30 Ml Oral.Susp) 30 ml PO DAILY PRN PRN Reason: Constipation Nicotine Polacrilex (Nicotine Polacrilex 2 Mg Gum) 4 mg BUCCAL Q2H PRN PRN Reason: Nicotine Cravings Olanzapine (Olanzapine Odt 10 Mg Tab.Rapdis) 10 mg TRANSLINGU BID [facility] Last Admin: 07/09/24 08:48 Dose: 10 mg Paroxetine HCl (Paroxetine Hcl 20 Mg Tablet) 20 mg PO DAILY [facility] Last Admin: 07/09/24 08:48 Dose: 20 mg Trazodone HCl (Trazodone Hcl 50 Mg Tablet) 50 mg PO BEDTIME MRX1 PRN PRN Reason: Insomnia Last Admin: 07/01/24 20:29 Dose: 50 mg Allergies Allergies Allergy/AdvReac Type Severity Reaction Status Date / Time latex Allergy Unknown Unknown Verified 07/01/24 01:48 mold Allergy Unknown Unknown Verified 07/01/24 01:48 Assessment & Plan Assessment & Plan (1) MDD (major depressive disorder), recurrent, severe, with psychosis: Status: Acute Code(s): F33.3 - Major depressive disorder, recurrent, severe with psychotic symptoms (2) PTSD (post-traumatic stress disorder): Status: Acute Code(s): F43.10 - Post-traumatic stress disorder, unspecified Plan Patient is a 54-year-old female with MDD with psychotic features, PTSD who presented to ER on a section 12 due to walking in the snow and freezing rain and being found by police secondary to medication noncompliance. Plan: CV 15 minute safety checks Continue home medications Encourage groups Obtain collateral Build rapport Discharge planning 07/03: Continue current regimen and plans. 07/04: Continue current regimen and plans 07/05: Patient reports feeling calmer and more engaged today; pt stated, I'm willing to keep taking my meds. The voices went away over the weekend . Pt appears thought blocking/preoccupied at times during conversation. She expresses concern with trusting people . denies SI/HI/VH/AH. Continue current tx plan. 07/06: Active on unit. attending groups. Patient reports feeling she is getting back to normal ; she reports sleeping well. Not appearing preoccupied today during conversation. denies SI/HI/VH/AH. Educated regarding importance of medication compliance; pt expressed understanding. Continue current tx plan. 07/07: Active on unit. attending groups. Patient reports feeling good today; pt stated, I think i'm on the right meds. It's helpful . denies SI/HI/VH/AH. Plan to discharge home early next week, if continues to improve. continue current tx plan. 07/08: Patient continues to report feeling good ; plan to be discharged next week and her outpatient team to pick her up from hospital. denies SI/HI/VH/AH. She reports sleeping well. denies any issues at this time. attending groups. 07/09: Continue current management and treatment plan. Reason for continued inpatient stay Substantial Risk for: harm to self, inability to function and rapid decompensation Time Spent With Patient Time: Total time managing care of this patient today ____ minutes.
[2024-07-09] MEDS: Magnesium Hydrox/Alum Hydrox 30 ML ORAL.SUSP PO (16:04)
[2024-07-09 20:00] VITALS: BP 121/75; PULSE 108; RESP 16; TEMP 36.6; O2SAT 97
[2024-07-09] MEDS: Calcium Carbonate 750 MG TAB.CHEW PO (20:39)
[2024-07-10 07:10] VITALS: BP 138/78; PULSE 56; RESP 12; TEMP 36.4; O2SAT 100
[2024-07-10] MEDS: OLANZapine ODT 10 MG TAB.RAPDIS TRANSLINGU ×2 (08:49→20:31)
[2024-07-10] MEDS: PARoxetine HCL 20 MG TABLET PO (08:50)
[2024-07-10] MEDS: Calcium Carbonate 750 MG TAB.CHEW PO (09:08)
--- NOTE | 2024-07-10 11:10 | P.PNPSI_ITS ---
Subjective Subjective Date of Service: 07/10/24 Reason For Visit: major depressive disorder, unspecified anxiety Interim History: Active on unit. attending groups. She has a heating pad that she is holding to her right shoulder. She reports she has a history of chronic shoulder pain and s he uses a heating pad for that. No acute injuries. She declines lidocaine patch. Patient continues to report feeling good in terms of her mood; plan to be discharged next week and her outpatient team to pick her up from hospital. denies SI/HI/VH/AH. She reports sleeping well. denies any issues at this time. Review of Systems Review of Systems Yes all other systems are reviewed and are negative Mental Status Exam Mental Status Exam Narrative: Pt is alert and oriented; behavior is cooperative, calm; dressed in casual attire; mood is described as good ; eye contact appropriate; Speech is normal rate, volume and not pressured; Thought content is on tx and discharge; denies SI/HI/VH/AH. Patient Appearance: Disheveled Patient Orientation: Person, Place and Situation Level of Consciousness: Awake Patient Behavior: Guarded, Verbal Threats, Swearing and Poor Eye Contact Mood Description: Labile Affect Description: Blunted Ability to Follow Directions: Good Speech Pattern: Clear and Includes Profanity Diagnostics Vital Signs (24Hr): Vital Signs - 24 hr 07/09/24 20:00 07/10/24 07:10 Temperature 98 F 97.6 F Pulse Rate 108 H 56 Respiratory Rate 16 12 Blood Pressure 121/75 138/78 Pulse Oximetry 97 100 Oxygen Delivery Method Room Air Room Air BMI result Body Mass Index 30.6 Medications Medications Current Medications Acetaminophen (Acetaminophen 325 Mg Tablet) 650 mg PO Q6H PRN PRN Reason: Headache/Pain, Scale 1-10 Al Hydroxide/Mg Hydroxide (Magnesium Hydrox/Alum Hydrox 30 Ml Oral.Susp) 30 ml PO Q6H PRN PRN Reason: Heartburn/Nausea Last Admin: 07/09/24 16:04 Dose: 30 ml Benztropine Mesylate (Benztropine Mesylate 1 Mg Tablet) 1 mg PO DAILY PRN PRN Reason: Extrapyramidal Effects Calcium Carbonate (Calcium Carbonate 750 Mg Tab.Chew) 750 mg PO Q6H PRN PRN Reason: Heartburn Last Admin: 07/10/24 09:08 Dose: 750 mg Hydroxyzine HCl (Hydroxyzine Hcl 25 Mg Tablet) 25 mg PO Q6H PRN PRN Reason: mild anxiety Magnesium Hydroxide (Milk Of Magnesia 30 Ml Oral.Susp) 30 ml PO DAILY PRN PRN Reason: Constipation Nicotine Polacrilex (Nicotine Polacrilex 2 Mg Gum) 4 mg BUCCAL Q2H PRN PRN Reason: Nicotine Cravings Olanzapine (Olanzapine Odt 10 Mg Tab.Rapdis) 10 mg TRANSLINGU BID [facility] Last Admin: 07/10/24 08:49 Dose: 10 mg Paroxetine HCl (Paroxetine Hcl 20 Mg Tablet) 20 mg PO DAILY [facility] Last Admin: 07/10/24 08:50 Dose: 20 mg Trazodone HCl (Trazodone Hcl 50 Mg Tablet) 50 mg PO BEDTIME MRX1 PRN PRN Reason: Insomnia Last Admin: 07/01/24 20:29 Dose: 50 mg Allergies Allergies Allergy/AdvReac Type Severity Reaction Status Date / Time latex Allergy Unknown Unknown Verified 07/01/24 01:48 mold Allergy Unknown Unknown Verified 07/01/24 01:48 Assessment & Plan Assessment & Plan (1) MDD (major depressive disorder), recurrent, severe, with psychosis: Status: Acute Code(s): F33.3 - Major depressive disorder, recurrent, severe with psychotic symptoms (2) PTSD (post-traumatic stress disorder): Status: Acute Code(s): F43.10 - Post-traumatic stress disorder, unspecified Plan Patient is a 54-year-old female with MDD with psychotic features, PTSD who presented to ER on a section 12 due to walking in the snow and freezing rain and being found by police secondary to medication noncompliance. Plan: CV 15 minute safety checks Continue home medications Encourage groups Obtain collateral Build rapport Discharge planning 07/03: Continue current regimen and plans. 07/04: Continue current regimen and plans 07/05: Patient reports feeling calmer and more engaged today; pt stated, I'm willing to keep taking my meds. The voices went away over the weekend . Pt appears thought blocking/preoccupied at times during conversation. She expresses concern with trusting people . denies SI/HI/VH/AH. Continue current tx plan. 07/06: Active on unit. attending groups. Patient reports feeling she is getting back to normal ; she reports sleeping well. Not appearing preoccupied today during conversation. denies SI/HI/VH/AH. Educated regarding importance of medication compliance; pt expressed understanding. Continue current tx plan. 07/07: Active on unit. attending groups. Patient reports feeling good today; pt stated, I think i'm on the right meds. It's helpful . denies SI/HI/VH/AH. Plan to discharge home early next week, if continues to improve. continue current tx plan. 07/08: Patient continues to report feeling good ; plan to be discharged next week and her outpatient team to pick her up from hospital. denies SI/HI/VH/AH. She reports sleeping well. denies any issues at this time. attending groups. 07/09: Continue current management and treatment plan. 07/10: Continue current management and treatment plan. Reason for continued inpatient stay Substantial Risk for: inability to function and rapid decompensation Time Spent With Patient Time: Total time managing care of this patient today ____ minutes.
[2024-07-10] MEDS: bisacodyL 5 MG TABLET.DR 10 MG PO (11:40)
[2024-07-10 20:00] VITALS: BP 154/80; PULSE 87; RESP 16; TEMP 36.9; O2SAT 96
[2024-07-11 07:50] VITALS: BP 145/73; PULSE 59; RESP 14; TEMP 36.3; O2SAT 100
[2024-07-11] MEDS: PARoxetine HCL 20 MG TABLET PO (09:10)
[2024-07-11] MEDS: OLANZapine ODT 10 MG TAB.RAPDIS TRANSLINGU ×2 (09:10→20:43)
--- NOTE | 2024-07-11 09:27 | P.PNPSI_ITS ---
Subjective Subjective Date of Service: 07/11/24 Reason For Visit: major depressive disorder, unspecified anxiety Subjective Notes: Conditional Voluntary Interim History: Active on unit, social with peers. attending groups. Pt reports she continues to feel good and is looking forward to seeing my family and friends . denies SI/HI/VH/AH. Plan to discharge home on Thursday. Medication Compliance: Yes Side effects from medications: No Attending Groups: Yes Mental Status Exam Mental Status Exam Narrative: Pt is alert and oriented; behavior is cooperative, calm; dressed in casual attire; mood is described as good ; eye contact appropriate; Speech is normal rate, volume and not pressured; Thought content is on tx and discharge; denies SI/HI/VH/AH. Diagnostics Vital Signs (24Hr): Vital Signs - 24 hr 07/10/24 20:00 07/11/24 07:50 Temperature 98.5 F 97.4 F Pulse Rate 87 59 Respiratory Rate 16 14 Blood Pressure 154/80 H 145/73 H Pulse Oximetry 96 100 Oxygen Delivery Method Room Air Room Air BMI result Body Mass Index 30.6 Medications Medications Current Medications Acetaminophen (Acetaminophen 325 Mg Tablet) 650 mg PO Q6H PRN PRN Reason: Headache/Pain, Scale 1-10 Al Hydroxide/Mg Hydroxide (Magnesium Hydrox/Alum Hydrox 30 Ml Oral.Susp) 30 ml PO Q6H PRN PRN Reason: Heartburn/Nausea Last Admin: 07/09/24 16:04 Dose: 30 ml Benztropine Mesylate (Benztropine Mesylate 1 Mg Tablet) 1 mg PO DAILY PRN PRN Reason: Extrapyramidal Effects Calcium Carbonate (Calcium Carbonate 750 Mg Tab.Chew) 750 mg PO Q6H PRN PRN Reason: Heartburn Last Admin: 07/10/24 09:08 Dose: 750 mg Hydroxyzine HCl (Hydroxyzine Hcl 25 Mg Tablet) 25 mg PO Q6H PRN PRN Reason: mild anxiety Magnesium Hydroxide (Milk Of Magnesia 30 Ml Oral.Susp) 30 ml PO DAILY PRN PRN Reason: Constipation Nicotine Polacrilex (Nicotine Polacrilex 2 Mg Gum) 4 mg BUCCAL Q2H PRN PRN Reason: Nicotine Cravings Olanzapine (Olanzapine Odt 10 Mg Tab.Rapdis) 10 mg TRANSLINGU BID [facility] Last Admin: 07/11/24 09:10 Dose: 10 mg Paroxetine HCl (Paroxetine Hcl 20 Mg Tablet) 20 mg PO DAILY [facility] Last Admin: 07/11/24 09:10 Dose: 20 mg Trazodone HCl (Trazodone Hcl 50 Mg Tablet) 50 mg PO BEDTIME MRX1 PRN PRN Reason: Insomnia Last Admin: 07/01/24 20:29 Dose: 50 mg Allergies Allergies Allergy/AdvReac Type Severity Reaction Status Date / Time latex Allergy Unknown Unknown Verified 07/01/24 01:48 mold Allergy Unknown Unknown Verified 07/01/24 01:48 Assessment & Plan Assessment & Plan (1) MDD (major depressive disorder), recurrent, severe, with psychosis: Status: Acute Code(s): F33.3 - Major depressive disorder, recurrent, severe with psychotic symptoms (2) PTSD (post-traumatic stress disorder): Status: Acute Code(s): F43.10 - Post-traumatic stress disorder, unspecified Plan Patient is a 54-year-old female with MDD with psychotic features, PTSD who presented to ER on a section 12 due to walking in the snow and freezing rain and being found by police secondary to medication noncompliance. Plan: CV 15 minute safety checks Continue home medications Encourage groups Obtain collateral Build rapport Discharge planning 07/03: Continue current regimen and plans. 07/04: Continue current regimen and plans 07/05: Patient reports feeling calmer and more engaged today; pt stated, I'm willing to keep taking my meds. The voices went away over the weekend . Pt appears thought blocking/preoccupied at times during conversation. She expresses concern with trusting people . denies SI/HI/VH/AH. Continue current tx plan. 07/06: Active on unit. attending groups. Patient reports feeling she is getting back to normal ; she reports sleeping well. Not appearing preoccupied today during conversation. denies SI/HI/VH/AH. Educated regarding importance of medication compliance; pt expressed understanding. Continue current tx plan. 07/07: Active on unit. attending groups. Patient reports feeling good today; pt stated, I think i'm on the right meds. It's helpful . denies SI/HI/VH/AH. Plan to discharge home early next week, if continues to improve. continue current tx plan. 07/08: Patient continues to report feeling good ; plan to be discharged next week and her outpatient team to pick her up from hospital. denies SI/HI/VH/AH. She reports sleeping well. denies any issues at this time. attending groups. 07/09: Continue current management and treatment plan. 07/10: Continue current management and treatment plan. 07/11: Active on unit, social with peers. attending groups. Pt reports she continues to feel good and is looking forward to seeing my family and friends . denies SI/HI/VH/AH. Plan to discharge home on Thursday. Patient educated on: diagnosis and medication risk/benefits Reason for continued inpatient stay Substantial Risk for: med/psych decompensation Time Spent With Patient Time: Total time managing care of this patient today _20___ minutes.
[2024-07-11 20:00] VITALS: BP 134/68; PULSE 75; RESP 18; TEMP 36.5; O2SAT 96
[2024-07-12 07:54] VITALS: BP 124/68; PULSE 64; RESP 16; TEMP 36.6; O2SAT 99
[2024-07-12] MEDS: OLANZapine ODT 10 MG TAB.RAPDIS TRANSLINGU ×2 (08:42→20:02)
[2024-07-12] MEDS: PARoxetine HCL 20 MG TABLET PO (08:43)
--- NOTE | 2024-07-12 09:19 | P.PNPSI_ITS ---
Subjective Subjective Date of Service: 07/12/24 Reason For Visit: major depressive disorder, unspecified anxiety Subjective Notes: Conditional Voluntary Interim History: Active on unit, social with peers. attending groups. Pt reports feeling good and looking forward to leaving. denies SI/HI/VH/AH. she reports sleeping well. Pt plans on following up with her outpatient providers. Medication Compliance: Yes Side effects from medications: No Attending Groups: Yes Mental Status Exam Mental Status Exam Narrative: Pt is alert and oriented; behavior is cooperative, calm; dressed in casual attire; mood is described as good ; eye contact appropriate; Speech is normal rate, volume and not pressured; Thought content is on tx and discharge; denies SI/HI/VH/AH. Diagnostics Vital Signs (24Hr): Vital Signs - 24 hr 07/11/24 20:00 07/12/24 07:54 Temperature 97.7 F 97.8 F Pulse Rate 75 64 Respiratory Rate 18 16 Blood Pressure 134/68 124/68 Pulse Oximetry 96 99 Oxygen Delivery Method Room Air Room Air BMI result Body Mass Index 30.6 Medications Medications Current Medications Acetaminophen (Acetaminophen 325 Mg Tablet) 650 mg PO Q6H PRN PRN Reason: Headache/Pain, Scale 1-10 Al Hydroxide/Mg Hydroxide (Magnesium Hydrox/Alum Hydrox 30 Ml Oral.Susp) 30 ml PO Q6H PRN PRN Reason: Heartburn/Nausea Last Admin: 07/09/24 16:04 Dose: 30 ml Benztropine Mesylate (Benztropine Mesylate 1 Mg Tablet) 1 mg PO DAILY PRN PRN Reason: Extrapyramidal Effects Calcium Carbonate (Calcium Carbonate 750 Mg Tab.Chew) 750 mg PO Q6H PRN PRN Reason: Heartburn Last Admin: 07/10/24 09:08 Dose: 750 mg Hydroxyzine HCl (Hydroxyzine Hcl 25 Mg Tablet) 25 mg PO Q6H PRN PRN Reason: mild anxiety Magnesium Hydroxide (Milk Of Magnesia 30 Ml Oral.Susp) 30 ml PO DAILY PRN PRN Reason: Constipation Nicotine Polacrilex (Nicotine Polacrilex 2 Mg Gum) 4 mg BUCCAL Q2H PRN PRN Reason: Nicotine Cravings Olanzapine (Olanzapine Odt 10 Mg Tab.Rapdis) 10 mg TRANSLINGU BID [facility] Last Admin: 07/12/24 08:42 Dose: 10 mg Paroxetine HCl (Paroxetine Hcl 20 Mg Tablet) 20 mg PO DAILY [facility] Last Admin: 07/12/24 08:43 Dose: 20 mg Trazodone HCl (Trazodone Hcl 50 Mg Tablet) 50 mg PO BEDTIME MRX1 PRN PRN Reason: Insomnia Last Admin: 07/01/24 20:29 Dose: 50 mg Allergies Allergies Allergy/AdvReac Type Severity Reaction Status Date / Time latex Allergy Unknown Unknown Verified 07/01/24 01:48 mold Allergy Unknown Unknown Verified 07/01/24 01:48 Assessment & Plan Assessment & Plan (1) MDD (major depressive disorder), recurrent, severe, with psychosis: Status: Acute Code(s): F33.3 - Major depressive disorder, recurrent, severe with psychotic symptoms (2) PTSD (post-traumatic stress disorder): Status: Acute Code(s): F43.10 - Post-traumatic stress disorder, unspecified Plan Patient is a 54-year-old female with MDD with psychotic features, PTSD who presented to ER on a section 12 due to walking in the snow and freezing rain and being found by police secondary to medication noncompliance. Plan: CV 15 minute safety checks Continue home medications Encourage groups Obtain collateral Build rapport Discharge planning 07/03: Continue current regimen and plans. 07/04: Continue current regimen and plans 07/05: Patient reports feeling calmer and more engaged today; pt stated, I'm willing to keep taking my meds. The voices went away over the weekend . Pt appears thought blocking/preoccupied at times during conversation. She expresses concern with trusting people . denies SI/HI/VH/AH. Continue current tx plan. 07/06: Active on unit. attending groups. Patient reports feeling she is getting back to normal ; she reports sleeping well. Not appearing preoccupied today during conversation. denies SI/HI/VH/AH. Educated regarding importance of medication compliance; pt expressed understanding. Continue current tx plan. 07/07: Active on unit. attending groups. Patient reports feeling good today; pt stated, I think i'm on the right meds. It's helpful . denies SI/HI/VH/AH. Plan to discharge home early next week, if continues to improve. continue current tx plan. 07/08: Patient continues to report feeling good ; plan to be discharged next week and her outpatient team to pick her up from hospital. denies SI/HI/VH/AH. She reports sleeping well. denies any issues at this time. attending groups. 07/09: Continue current management and treatment plan. 07/10: Continue current management and treatment plan. 07/11: Active on unit, social with peers. attending groups. Pt reports she continues to feel good and is looking forward to seeing my family and friends . denies SI/HI/VH/AH. Plan to discharge home on Thursday. 07/12: Active on unit, social with peers. attending groups. Pt reports feeling good and looking forward to leaving. denies SI/HI/VH/AH. she reports sleeping well. Pt plans on following up with her outpatient providers. Patient educated on: diagnosis and medication risk/benefits Reason for continued inpatient stay Substantial Risk for: stable for discharge Time Spent With Patient Time: Total time managing care of this patient today _20___ minutes.
[2024-07-12] MEDS: Calcium Carbonate 750 MG TAB.CHEW PO (15:56)
[2024-07-12 20:00] VITALS: BP 132/71; PULSE 110; RESP 18; TEMP 36.1; O2SAT 96
[2024-07-13 07:20] VITALS: BP 129/103; PULSE 72; RESP 16; TEMP 36.7; O2SAT 98
[2024-07-13] MEDS: OLANZapine ODT 10 MG TAB.RAPDIS TRANSLINGU (08:50)
[2024-07-13] MEDS: PARoxetine HCL 20 MG TABLET PO (08:50)
--- NOTE | 2024-07-13 09:34 | PM.PSYDC ---
DS: Providers Provider Date of Service: 07/13/24 Date of admission: 07/01/24 01:16 Date of discharge: 07/13/24 Primary care physician: Unknown Physician Admitting clinician: Leonarda Paris Attending physician on admission: Cecil Rosenthal Consults: 07/01/24 01:48 Consult to Hospitalist Routine Comment: Consulting Provider: [facility] [place] [facility] Reason For Exam: Direct admission Attending physician on discharge: Cecil Rosenthal Discharging clinician: Leonarda Paris DS: Diagnosis Discharge Diagnosis (1) MDD (major depressive disorder), recurrent, severe, with psychosis: Status: Acute (2) PTSD (post-traumatic stress disorder): Status: Acute DS: Medications Discharge Medications Home Medications: Previous Rx's ?Medication ?Instructions ?Recorded benztropine 1 mg tablet 1 mg PO DAILY PRN Extrapyramidal 07/12/24 Effects 30 days #30 tabs olanzapine 10 mg disintegrating 10 mg translingual BID 30 days #60 07/12/24 tablet tabs paroxetine HCl 20 mg tablet 20 mg PO DAILY 30 days #30 tabs 07/12/24 Mental Status Exam Mental Status Exam Narrative: Pt is alert and oriented; behavior is cooperative, calm; dressed in casual attire; mood is described as good ; eye contact appropriate; Speech is normal rate, volume and not pressured; Thought content is on tx and discharge; denies SI/HI/VH/AH. DS: Summary Hospital Course Hospital Course: Patient is a 54-year-old female with MDD with psychotic features, PTSD who presented to ER on a section 12 due to walking in the snow and freezing rain and being found by police secondary to medication noncompliance. Per crisis report, patient was out all night in the snow/freezing rain and was returned home via police presenting increasingly disorganized, not attending to her ADLs and attempting to discard of all of her possessions.. Patient presented to ER on a section 12 issued by [facility] after she refused evaluation and was too disorganized. She presented labile, muttering to herself and weeping. She presented with pressured speech, perseverating on Gypsies. She denies SI/HI/VH/AH. Denies any daily medications. Denies any substance use. During admission assessment, patient lying in bed refused to meet with T/W in unit office. Declined to turn over in bed to look at T/W during assessment. Guarded. Irritable. Patient kept assessment brief. When asked what brought her to the hospital, patient stated, I was brought here by ambulance. I don't fucking know why I'm here . Patient reports she is not anxious or depressed. When asked about thoughts of hurting others, patient stated, Just you . Patient then abruptly stopped interview and stated, I want you to leave the fucking room . T/W and social science research assistant, Duyen, proceeded to leave room and told pt to ask RN if she needed anything. Later in morning, patient was seen sitting at table in unit milieu. T/W and RN approached patient and discussed conditional voluntary, which patient stated she understood and signed in. Discussed medications on her home medications hx (Zyprexa and Paxil); patient took medications willingly. Showered. Keeping to self. Plan: CV 15 minute safety checks Continue home medications Encourage groups Obtain collateral Build rapport Discharge planning Patient reports feeling calmer and more engaged today; pt stated, I'm willing to keep taking my meds. The voices went away over the weekend . Pt appears thought blocking/preoccupied at times during conversation. She expresses concern with trusting people . denies SI/HI/VH/AH. Continue current tx plan. Active on unit. attending groups. Patient reports feeling she is getting back to normal ; she reports sleeping well. Not appearing preoccupied today during conversation. denies SI/HI/VH/AH. Educated regarding importance of medication compliance; pt expressed understanding. Continue current tx plan. Active on unit. attending groups. Patient reports feeling good today; pt stated, I think i'm on the right meds. It's helpful . denies SI/HI/VH/AH. Plan to discharge home early next week, if continues to improve. continue current tx plan. Patient continues to report feeling good ; plan to be discharged next week and her outpatient team to pick her up from hospital. denies SI/HI/VH/AH. She reports sleeping well. denies any issues at this time. attending groups. Active on unit, social with peers. attending groups. Pt reports she continues to feel good and is looking forward to seeing my family and friends . denies SI/HI/VH/AH. Plan to discharge home on Thursday. Active on unit, social with peers. attending groups. Pt reports feeling good and looking forward to leaving. denies SI/HI/VH/AH. she reports sleeping well. Pt plans on following up with her outpatient providers. Status at Discharge Cognitive/behavioral status at discharge: Patient has insight and demonstrates good judgment in terms of wanting to pursue treatment. Patient has a safety plan that includes presenting to the closest ER or calling 911 if feeling unsafe. Functional status at discharge: independent ambulation Overall status at discharge: patient is back to baseline Time Spent with Patient Time attestation: Total time managing care of this patient today _20___ minutes. Time spent: Less than 30 minutes Discharge Plan Discharge Anticipated Discharge Date/Time: 07/13/24 11:30 Patient Disposition: Home, Self-Care Discharge Diagnosis: MDD, PTSD Referrals: Fabian Smiley ([facility]) [Other] - 07/28/24 10:30 am (In person appointment) Caroline Marin FNP [Nurse Practitioner] - 07/19/24 9:45 am (07-08-24 Your follow up appt has been scheduled for Thursday07-19-24 @ 9:45am) Discharge Medications: New paroxetine HCl 20 mg Tablet 20 mg PO DAILY 30 Days Qty: 30 0RF benztropine 1 mg Tablet 1 mg PO DAILY PRN (Reason: Extrapyramidal Effects) 30 Days Qty: 30 0RF olanzapine 10 mg Tablet,Disintegrating 10 mg translingual BID 30 Days Qty: 60 0RF Discontinued olanzapine 10 mg tablet 10 mg PO BEDTIME Patient Comments: Per Pharmacy: Last filled 04/08/24, new script received 06/11 but not picked up lorazepam 0.5 mg tablet 0.5 mg PO DAILY PRN (Reason: Anxiety) Patient Comments: Per Pharmacy: Last filled 04/08/24, new script received 06/11 but not picked up paroxetine HCl 20 mg tablet 20 mg PO DAILY Patient Comments: Per Pharmacy: Last filled 04/08/24, new script received 06/11 but not picked up zolpidem 5 mg tablet 5 mg PO BEDTIME PRN (Reason: Insomnia) Patient Comments: Per Pharmacy: Last filled 04/08/24, new script received 06/11 but not picked up olanzapine 2.5 mg Tablet 2.5 mg PO BEDTIME Patient Comments: Sent to [place] [facility] from different provider than other meds Apr 2024, not picked up by pt per [facility] Discharge Orders: Discharge Order (Routine); Ordered 07/13/24 Ordered By: Leonarda Paris Diet: Regular diet Activity on Discharge: As tolerated Stand Alone Forms: Patient Portal Discharge page, Community Support Print Language: Yoruba Care Plan Goals: Maintain mood and safe behaviors Take medications as prescribed Practice coping skills Continue with outpatient providers and reach out to them as needed Health Concerns: Mood stability and behaviors Plan of Treatment: Follow up with your PCP, psychiatric provider and other outpatient providers regarding above concerns Take medications as prescribed Assessment: Patient has insight and demonstrates good judgment in terms of wanting to pursue treatment. Patient has a safety plan that includes presenting to the closest ER or calling 911 if feeling unsafe.
== END 2024-07-13 11:41 | disposition home or self-care (01) | DRG 885 ==
PROVIDERS: Psychiatry & Neurology Psychiatry; Admitting Provider Psychiatry & Neurology Psychiatry; Responsible Provider Registered Nurse; Visit Provider Psychiatry & Neurology Psychiatry
DX: F33.3 Major depressive disorder, recurrent, severe with psychotic symptoms (principal); F43.10 Post-traumatic stress disorder, unspecified; Z79.899 Other long term (current) drug therapy
CPT/HCPCS: 36415; 80061; 80307

== ENCOUNTER → 2024-07-01 01:16 | Outpatient (BNV) | payer OTHER, SELFPAY | PROVIDERS: Admitting Provider Psychiatry & Neurology Psychiatry; Responsible Provider Registered Nurse; Visit Provider Internal Medicine | DX: Z00.8 Encounter for other general examination (principal) | CPT/HCPCS: 99499 ==

== ENCOUNTER → 2024-07-01 01:16 | Outpatient (BNV) | payer OTHER, SELFPAY | PROVIDERS: Admitting Provider Psychiatry & Neurology Psychiatry; Responsible Provider Registered Nurse; Visit Provider Psychiatry & Neurology Psychiatry | DX: F33.3 Major depressive disorder, recurrent, severe with psychotic symptoms (principal); F43.10 Post-traumatic stress disorder, unspecified | CPT/HCPCS: 90792; 99231; 99232; 99238 ==